=== PATIENT | male | born 1980 | race Caucasian/White ===

== ENCOUNTER 2017-03-24 06:52 | Emergency (ER) | payer SELFPAY ==
[2017-03-24 07:14] VITALS: TEMP 97.3
[2017-03-24] MEDS ORDERED: SODIUM CHLORIDE 0.9% 1000ML 1,000 ML IVS ONE (07:15)
--- NOTE | 2017-03-24 07:23 | ED.PDOC ---
History of Present Illness - General Chief Complaint: Problem Stated Complaint: right back pain Time Seen by Provider: 03/24/17 07:00 Source: patient, RN notes reviewed, Vital Signs reviewed Exam Limitations: no limitations - History of Present Illness Initial Comments: Patient comes in with c/o on R flank pain that started 4 days ago. Pain feels like a heaviness and is radiating to his L flank. He also has noticed decreased urine output, not getting up as much at night to pee. 3 days ago he took some baking soda to flush his kidneys but is concerned he may have hurt them. 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 No radiation of pain to abdomen or down legs. He does report a sore throat that started 3 days prior to the kidney pain. Timing/Duration: constant - X 3-4 days Quality: moderate, dull - heavy feeling Onset Location: right flank Radiation: left flank Activites at Onset: rest Prior abdominal problems: none Improving Factors: nothing Worsening Factors: nothing Associated Symptoms: denies symptoms Allergies/Adverse Reactions: Allergies NO KNOWN ALLERGY Allergy (Verified 03/24/17 07:14) Review of Systems - Review of Systems Constitutional: States: no symptoms reported, fever. Denies: chills EENTM: States: nose congestion, throat pain Respiratory: States: no symptoms reported. Denies: short of breath Cardiology: States: no symptoms reported Gastrointestinal/Abdominal: States: no symptoms reported, abdominal pain. Denies: nausea, vomiting Genitourinary: States: see HPI, pain. Denies: dysuria, frequency Musculoskeletal: States: see HPI, back pain Skin: States: no symptoms reported Neurological: States: no symptoms reported All other Systems: No Change from Baseline Past Medical History (General) - Patient Medical History Hx Asthma: No Hx of COPD: No Hx Cardiac Disorders: No Hx Congestive Heart Failure: No Hx Hypertension: No Surgical History: appendectomy - Vaccination History Hx Tetanus, Diphtheria Vaccination: No Hx Influenza Vaccination: No Hx Pneumococcal Vaccination: No - Social History Hx Tobacco Use: No Hx Alcohol Use: No Hx Substance Use: No Hx Substance Use Treatment: No Hx Depression: No Family Medical History - Family History Mother Family History: Unknown Physical Exam - Physical Exam General Appearance: Alert, Comfortable, No apparent distress, Well Developed, Well Groomed, Well Hydrated, Well Nourished Neck: supple, normal inspection Cardiovascular/Respiratory: regular rate, rhythm, no M/R/G, no JVD, normal breath sounds, no respiratory distress Gastrointestinal/Abdominal: normal bowel sounds, non tender, soft, no organomegaly, no pulsatile mass Back Exam: CVA tenderness (R) Extremity: normal range of motion, non-tender, normal inspection Neurologic: alert, normal mood/affect, oriented x 3 Skin Exam: normal color, warm/dry Comments: Vital Signs 03/24/17 07:04 Temperature 97.3 F L Pulse Rate [ 102 H pulse ox] Respiratory 20 Rate Blood Pressure 125/87 [Left Arm] O2 Sat by Pulse 97 Oximetry Progress - Progress Progress: 03/24/17 08:00 Discussed normal lab results with patient. Suspect is musculoskeletal in nature. Recommended alternating heat and ice along with Ibuprofen 800mg 3X/day as needed. - Results/Orders Results/Orders: Laboratory Tests 03/24/17 03/24/17 03/24/17 07:20 07:20 07:20 WBC 6.5 RBC 5.36 Hgb 16.5 Hct 48.9 MCV 91.3 MCH 30.9 MCHC 33.8 RDW 12.4 Plt Count 193 MPV 8.7 Absolute Neuts (auto) 4.30 Absolute Lymphs (auto) 1.50 Absolute Monos (auto) 0.60 Absolute Eos (auto) 0.10 Absolute Basos (auto) 0.00 Neutrophils % 65.6 Lymphocytes % 23.1 Monocytes % 8.6 Eosinophils % 2.2 Basophils % 0.5 Sodium 137 Potassium 3.5 L Chloride 101 Carbon Dioxide 29 Anion Gap 10.5 L BUN 11 Creatinine 1.01 BUN/Creatinine Ratio 10.9 Random Glucose 167 H Serum Osmolality 277.0 Calcium 9.5 Total Bilirubin 0.6 AST 16 ALT 13 Alkaline Phosphatase 51 Serum Total Protein 8.2 Albumin 4.8 Globulin 3.4 Albumin/Globulin Ratio 1.4 Urine Color Yellow Urine Appearance Clear Urine pH 6.5 Ur Specific Freeland >= 1.030 Urine Protein Negative Urine Glucose (UA) Negative Urine Ketones Negative Urine Blood Negative Urine Nitrite Negative Urine Bilirubin Negative Urine Urobilinogen 0.2 Ur Leukocyte Esterase Negative Urine RBC 0 Urine WBC 0 Ur Epithelial Cells 0 Urine Bacteria 0 Group A Strep DNA 03/24/17 07:26 WBC RBC Hgb Hct MCV MCH MCHC RDW Plt Count MPV Absolute Neuts (auto) Absolute Lymphs (auto) Absolute Monos (auto) Absolute Eos (auto) Absolute Basos (auto) Neutrophils % Lymphocytes % Monocytes % Eosinophils % Basophils % Sodium Potassium Chloride Carbon Dioxide Anion Gap BUN Creatinine BUN/Creatinine Ratio Random Glucose Serum Osmolality Calcium Total Bilirubin AST ALT Alkaline Phosphatase Serum Total Protein Albumin Globulin Albumin/Globulin Ratio Urine Color Urine Appearance Urine pH Ur Specific Freeland Urine Protein Urine Glucose (UA) Urine Ketones Urine Blood Urine Nitrite Urine Bilirubin Urine Urobilinogen Ur Leukocyte Esterase Urine RBC Urine WBC Ur Epithelial Cells Urine Bacteria Group A Strep DNA Negative Departure - Departure Clinical Impression: Low back pain Qualifiers: Chronicity: acute Back pain laterality: right Sciatica presence: without sciatica Qualified Code(s): M54.5 - Low back pain Time of Disposition: 08:01 Disposition: Discharge to Home or Self Care Condition: Good Departure Forms: ED Discharge - Pt. Copy, Patient Portal Self Enrollment Instructions: DI for Low Back Pain Diet: resume usual diet Activity: increase activity as tolerated Referrals: THOMAS DUKES [Family Provider] - 1-2 Weeks Additional Instructions: Discussed normal lab results with patient. Suspect is musculoskeletal in nature. Recommended alternating heat and ice along with Ibuprofen 800mg 3X/day as needed.
[2017-03-24 08:18] VITALS: BP 115/71; O2SAT 96
== END 2017-03-24 08:15 | disposition home or self-care (01) ==
LOC: ER 06:52
DX: M54.5 Low back pain (principal)
CPT/HCPCS: 36415; 80053; 81001; 85025; 87070; 87651; J7030

== ENCOUNTER 2017-09-16 04:50 | Observation (INO) | payer BC ==
[2017-09-16] MEDS ORDERED: SODIUM CHLORIDE 0.9% 1000ML 1,000 ML IVS ONE ×2 (05:22→06:40)
[2017-09-16] MEDS ORDERED: LOPERAMIDE CAP 2 MG CAP PO ONE (05:22)
[2017-09-16] MEDS ORDERED: ONDANSETRON ODT 8 MG TAB SL ONE (05:22)
--- NOTE | 2017-09-16 05:26 | ED.PDOC ---
History of Present Illness - General Source: patient Exam Limitations: no limitations - History of Present Illness Initial Comments: the patient is a 37-year-old male presenting to the emergency room with 3 days of nausea vomiting and diarrhea. The worst it has apparently been the diarrhea. No blood in the stool or vomitus. No real abdominal pain just some diffuse cramping. No fevers. His son has recently had similar symptoms. He is now having some body aches from dehydration. Severity: moderate Improving Factors: nothing Worsening Factors: nothing Associated Symptoms: loss of appetite, malaise, nausea/vomiting <Linden Hamilton - Last Filed: 09/16/17 06:40> <Sebas Carlton - Last Filed: 09/16/17 10:24> - General Chief Complaint: GI Problem Stated Complaint: N/V/D Time Seen by Provider: 09/16/17 05:06 - History of Present Illness Allergies/Adverse Reactions: Allergies NO KNOWN ALLERGY Allergy (Verified 03/24/17 07:14) Home Medications: Ambulatory Orders Citalopram Hydrobromide [CeleXA] 20 mg PO DAILY 09/16/17 Clonazepam [Klonopin] 1 mg PO BID 09/16/17 hydrOXYzine HCl [Atarax] 50 mg PO BID 09/16/17 Review of Systems - Review of Systems Constitutional: States: malaise EENTM: States: no symptoms reported Respiratory: States: no symptoms reported Cardiology: States: no symptoms reported Gastrointestinal/Abdominal: States: see HPI Genitourinary: States: no symptoms reported Musculoskeletal: States: muscle pain Skin: States: no symptoms reported Neurological: States: headache - mild Endocrine: States: no symptoms reported All other Systems: No Change from Baseline <Linden Hamilton - Last Filed: 09/16/17 06:40> Past Medical History (General) - Patient Medical History Hx Asthma: No Hx of COPD: No Hx Cardiac Disorders: No Hx Congestive Heart Failure: No Hx Hypertension: No Surgical History: appendectomy - Vaccination History Hx Tetanus, Diphtheria Vaccination: No Hx Influenza Vaccination: No Hx Pneumococcal Vaccination: No Immunizations Up to Date: No - Social History Hx Tobacco Use: No Hx Alcohol Use: No Hx Substance Use: No Hx Substance Use Treatment: No Hx Depression: No <Linden Hamilton - Last Filed: 09/16/17 06:40> Family Medical History - Family History Mother Family History: Unknown <Linden Hamilton - Last Filed: 09/16/17 06:40> Physical Exam - Physical Exam General Appearance: Alert, No apparent distress Eye Exam: bilateral normal Ears, Nose, Throat: hearing grossly normal, normal ENT inspection, normal pharynx Neck: full range of motion, supple Respiratory: lungs clear, normal breath sounds, no respiratory distress, no accessory muscle use Cardiovascular/Chest: normal peripheral pulses, regular rate, rhythm, no edema Peripheral Pulses: radial,right: 2+, radial,left: 2+, dorsalis pedis,right: 2+, dorsalis pedis,left: 2+ Gastrointestinal/Abdominal: non tender, soft, other - no rebound or peritoneal signs and no palpable mass Rectal Exam: deferred Back Exam: no CVA tenderness, no vertebral tenderness Extremity: normal range of motion, non-tender, normal inspection, no pedal edema , normal capillary refill Neurologic: calender tender II-XII nml as tested, alert, normal mood/affect, oriented x 3 Skin Exam: normal color Comments: Vital Signs - 24 hr 09/16/17 04:58 Temperature 98.1 F Pulse Rate [ 102 H Left] Respiratory 20 Rate Blood Pressure 134/88 [Right Arm] <Linden Hamilton - Last Filed: 09/16/17 06:40> Progress - Progress Progress: 09/16/17 06:42 the patient is a 37-year-old male presenting with 3 days of intermittent nausea and vomiting and more frequent diarrhea. No recent antibiotic use. No real abdominal pain. He denies blood in his stool or his vomitus. No fevers. His lab work does not look too concerning however there is a mild left shift on his white blood cell count. His abdominal x-ray is concerning for early partial small bowel obstruction versus inflammatory bowel disease. The patient has no previous diagnosis of his inflammatory bowel disease however he does report that his father did have multiple intestinal ulcers in the past. The patient also reports that he does frequently have abdominal bloating and cramping on a regular basis. CT scan with IV and oral contrast has been ordered for further evaluation. It is possible the patient may have more advanced bowel inflammation as well from dietary intolerances such as long-standing lactose intolerance or gluten sensitivity as well. No antibiotics have been given at this point. The patient is feeling a little better after some IV fluids and nausea medications. We will check a C. difficile on his next stool. The patient will be followed by the oncoming ER physician, Dr. Carlton. - Results/Orders Results/Orders: Laboratory Results - last 24 hr 09/16/17 09/16/17 05:30 05:30 WBC 9.9 RBC 5.39 Hgb 17.0 Hct 49.9 MCV 92.5 MCH 31.5 H MCHC 34.1 RDW 13.4 Plt Count 190 MPV 8.6 Absolute Neuts (auto) 8.90 H Absolute Lymphs (auto) 0.40 L Absolute Monos (auto) 0.50 Absolute Eos (auto) 0.10 Absolute Basos (auto) 0.00 Neutrophils % 90.3 H Lymphocytes % 4.0 L Monocytes % 4.9 Eosinophils % 0.7 L Basophils % 0.1 Sodium 137 Potassium 4.9 Chloride 102 Carbon Dioxide 28 Anion Gap 11.9 L BUN 20 H Creatinine 1.08 BUN/Creatinine Ratio 18.5 Random Glucose 189 H Serum Osmolality 281.5 Calcium 10.0 Magnesium 2.1 Total Bilirubin 0.9 AST 28 ALT 29 Alkaline Phosphatase 48 Serum Total Protein 8.3 H Albumin 4.8 Globulin 3.5 Albumin/Globulin Ratio 1.4 Amylase 50 Lipase 33 acute abdominal series shows bowel gas pattern concerning forearly partial small bowel obstruction versus inflammatory bowel disease. No free air. <Linden Hamilton - Last Filed: 09/16/17 06:40> - EKG/XRAY/CT XRAY: abdomen - suspect early SBO/IBD CT Ordered: Yes - abd/P-ileus no sbo,choleleithiasisis <Sebas Carlton R - Last Filed: 09/16/17 10:24> Departure <Linden Hamilton - Last Filed: 09/16/17 06:40> - Departure Time of Disposition: 10:24 <Sebas Carlton - Last Filed: 09/16/17 10:24> - Departure Clinical Impression: Acute diarrhea, Gastroenteritis, Dehydration, Enterocolitis Disposition: Admit Patient Condition: Good Departure Forms: ED Discharge - Pt. Copy, Patient Portal Self Enrollment Referrals: SAMAN QUARLES [Primary Care Provider] - 1-2 Weeks Home Medications: Ambulatory Orders Citalopram Hydrobromide [CeleXA] 20 mg PO DAILY 09/16/17 Clonazepam [Klonopin] 1 mg PO BID 09/16/17 hydrOXYzine HCl [Atarax] 50 mg PO BID 09/16/17 Decision To Admit - Decistion To Admit Decision to Admit Reason: Admit from ER Decision to Admit Date: 09/16/17 - D/W Oh David -ANP/Hospitalist Decision to Admit Time: 10:23 <Sebas Carlton - Last Filed: 09/16/17 10:24>
--- NOTE | 2017-09-16 06:19 | RAD ---
EXAM: TWO VIEW SINGLE and UPRIGHT ABDOMEN AND PA CHEST RADIOGRAPHS CLINICAL INDICATION: Nausea and vomiting for 3 days. COMPARISON: None. FINDINGS: Cardiac size and pulmonary vasculature are normal. Lungs are clear. No pleural effusions or pneumothorax. Numerous loops of nondistended small bowel colon with some has fluid levels on the upright examination. IMPRESSION: 1. Suspect early versus incomplete bowel obstruction versus inflammatory bowel disease. If clinical concern persists, post contrast abdomen and pelvic CT should be performed for further evaluation as clinically warranted. 2. Normal PA chest radiograph. Electronically signed by: Dash Edward MD 09/16/2017 6:18 AM CDT
--- NOTE | 2017-09-16 09:24 | CT ---
EXAM DESCRIPTION: CT ABDOMEN AND PELVIS WITH CONTRAST CLINICAL HISTORY: iv and oral contrast, nvd, susp abd xray COMPARISON: None Available. TECHNIQUE: CT of the abdomen and pelvis are performed during IV bolus administration of 100 mL of Isovue 300. Oral contrast media is administered as well. This exam was performed according to our departmental dose-optimization program, which includes automated exposure control, adjustment of the mA and/or kV according to patient size and/or use of iterative reconstruction technique. FINDINGS: The lung bases are clear without infiltrate or effusion. The liver is normal in appearance without cystic or solid abnormality. The gallbladder is well distended with numerous small fatty foci within the gallbladder lumen consistent with cholesterol gallstones. Acute inflammation or wall thickening or ductal dilation is not apparent. Moderate splenomegaly is present and the pancreas and adrenal glands appear normal. Both kidneys normally enhance cortically without stone or cyst or mass or obstruction. The stomach is distended with contrast and particulate material and likely several tablets layering in the dependent portion of the stomach with dilute contrast extending through small bowel loops several of which are modestly dilated in the right mid abdomen. Beyond this fluid-filled loops of small bowel as well as a fluid-filled colon suggests the possibility of an enterocolitis without bowel wall thickening or free abdominal air or fluid. With the proximal small bowel dilation a partial obstruction cannot be excluded but I am most suspicious this is related to an acute rather diffuse inflammatory process of the large and small bowel. The aorta and retroperitoneum and mesentery are unremarkable without significant adenopathy or inflammatory change. Fluid-filled terminal ileum and cecum is present without a distinct mass noted. The appendix is not specifically identified but secondary signs of mesenteric or cecal or terminal ileal localized inflammation is not apparent. Significant diverticulosis of the colon is not evident. Anterior abdominal wall and inguinal regions are unremarkable. The bladder distends normally and the prostate and seminal vesicles are normal. No free fluid within the cul-de-sac is noted. Mesenteric vascular structures are normal. The bony spine and pelvis and hips are unremarkable. IMPRESSION: 1. Abnormal stomach and small and large bowel with fluid distended small bowel and colon suggesting an enterocolitis with mild dilation of several loops of proximal small bowel most likely an ileus and less likely a partial obstruction. Oral contrast extends beyond these dilated loops into the normal caliber mid small bowel. 2. Large distended stomach filled with particulate material fluid and contrast as well as medication tablets suggesting an element of gastric atony or less likely gastric outlet obstruction. 3. Cholelithiasis with numerous small cholesterol stones within the gallbladder with normal bile ducts and gallbladder wall 4. No free abdominal fluid or localized acute inflammatory process such as appendicitis or diverticulitis. 5. Moderate splenomegaly with otherwise normal-appearing liver. Electronically signed by: Jeff Mullins MD 09/16/2017 9:22 AM CDT
[2017-09-16] MEDS ORDERED: LACTATED RINGERS 1,000 ML IVS PRN (10:21)
--- NOTE | 2017-09-16 10:42 | HP ---
SUPERVISING PHYSICIAN: Jeff Hamilton MD CHIEF COMPLAINT: Nausea, vomiting and diarrhea. HISTORY OF PRESENT ILLNESS: Mr. Talley is a 37-year-old, male patient who presented to the Emergency Department early this morning after having 3 days of nausea, vomiting and some diarrhea. He noted that around [place] he started having some blood in his stools although he was having formed stools at that time that then transitioned to some diarrhea over the last 24 to 48 hours. He has had some mild cramping like abdominal pains with bloating. He denied any fevers or chills. He also notes that his son has had similar symptoms over the last 6 days and he has had on and off diarrhea for the last 3 days. Initial workup in the Emergency Room consisted of an abdominal x-ray and per radiologic interpretation showed suspicious for early incomplete bowel obstruction versus inflammatory bowel disease. This was followed up with a CT of the abdomen and pelvis with oral and IV contrast and per radiologic interpretation there was note of abnormal stomach, small and large bowel distention and colon suggestive of enterocolitis with some mild dilation of several loops of small proximal most likely ileus, but cannot rule out partial obstruction. There is also note of cholelithiasis with numerous small cholesterol stones within the gallbladder, but normal bile ducts and gallbladder wall. There was no free abdominal fluid or localizing inflammatory response suggesting appendicitis or diverticulitis. Laboratory studies showed he had a normal white count of 9,900 with a left shift. Chemistries showed he had an elevated BUN, but normal liver functions and pancreatic enzymes. Given the findings on CT concerning for possible ileus, the patient is going to be placed in observation status for ongoing treatment with fluids, further evaluation and further consultation with Dr. Mora. The patient was placed in observation in stable condition. PAST MEDICAL HISTORY: 1. Anxiety. 2. Depression. PAST SURGICAL HISTORY: 1. Appendectomy. HOME MEDICATIONS: 1. Celexa 20 mg daily. 2. Atarax 50 mg b.i.d. 3. Klonopin 1 mg b.i.d. FAMILY HISTORY: Significant for diabetes mellitus, cardiovascular disease. 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 He is currently going through a divorce. He denies any alcohol or illicit drug use and has never smoked tobacco. REVIEW OF SYSTEMS: CONSTITUTIONAL: Some general malaise, but no fevers or chills. HEENT: Denies nasal congestion, sore throat, earaches. RESPIRATORY: Denies cough, shortness of breath. CARDIOVASCULAR: Denies chest pain, palpitations or syncopal episodes. GASTROINTESTINAL: As noted in history of present illness. Some diffuse abdominal cramping with nausea, vomiting and diarrhea. GENITOURINARY: Denies dysuria, hematuria or other urinary symptoms. NEUROLOGIC: Denies any headaches, ataxia, seizures or other neurologic deficits. PHYSICAL EXAMINATION: VITAL SIGNS: On initial presentation to the Emergency Department, he was slightly tachycardic with heart rate 102. Temperature 98.1. Blood pressure 134 /80. Respirations 20. Saturation 96% on room air. Admission weight 73.2 kg. GENERAL: On admission to the Medical/Surgical Floor, the patient appears to be comfortable in no acute distress. He is alert. HEENT: Tympanic membranes clear bilaterally. Oropharynx is pink, with dry mucous membranes. No lesions. NECK: Supple, nontender with full range of motion. No jugular venous distention noted. RESPIRATORY: Lungs clear to auscultation bilaterally without any rhonchi, wheezes, or rales. CARDIOVASCULAR: Regular rate and rhythm without any appreciable murmurs, gallops, or rubs. ABDOMEN: Soft, hypoactive bowel sounds with some mild diffuse tenderness throughout, but no rebound, peritoneal signs or guarding noted. EXTREMITIES: There is no cyanosis, clubbing or edema. NEUROLOGIC: The patient is alert and oriented times three. Cranial nerves II- XII are grossly intact. Facial features are symmetrical. Extraocular movements are within normal limits. There is no nystagmus noted. LABORATORY: White count 9,900, hemoglobin 17, hematocrit 49.9, platelet count 190,000. Differential does show a left shift. Chemistries with normal electrolytes with potassium 4.9, BUN 20, creatinine 1.08, glucose 189, calcium 10.0, magnesium 2.1. Liver functions within normal limits. Amylase and lipase within normal limits. TSH and hemoglobin A1c pending at time of admission. Urinalysis within normal limits. Stool occult blood pending. Urine drug screen toxicology was pending. MICROBIOLOGY: C. difficile toxin A and B were both negative for antigen and toxin A and B. Stool cultures pending. Giardia antigen stools pending. Leukocyte ferritin pending. O&P pending. RADIOLOGY: Initially in the Emergency Department, he had an abdominal x-ray and per radiologic interpretation was suspicious for early versus incomplete bowel obstruction versus inflammatory bowel disease. This was followed up with CT of the abdomen and pelvis with contrast, both oral and IV. Per radiologic interpretation, showed abnormal stomach, small and large bowel with fluid, distended small bowel suggestive enterocolitis with some mild dilation of several loops of proximal small bowel, most likely ileus and most likely a partial obstruction. There was also note of oral contrast that extended beyond the dilated loops into the normal caliber of the mid small bowel. There was also note of large, distended stomach filled with contrast media suggesting an element of gastric atonia or less likely gastric outlet obstruction. Also of note was cholelithiasis with numerous small cholesterol stones within the gallbladder with normal bile ducts and gallbladder wall. There was no note of any free abdominal fluid or localized acute inflammatory processes such as appendicitis or diverticulitis. There was note of moderate splenomegaly. Otherwise, normal appearing liver. ASSESSMENT: 1. Acute abdominal pain with concerns for ileus and questionable enterocolitis, uncertain etiology, with stool studies pending. 2. Cholelithiasis with normal bile ducts and no mention of gallbladder wall thickening on CT with contrast. 3. Moderate dehydration secondary to nausea, vomiting and diarrhea. 4. History of anxiety and depression. PLAN: The patient is going to be placed in observation status today for IV fluids for rehydration purposes and further evaluation. We will have a consultation with Dr. Mora. He will be NPO until further evaluation. We will provide him with antiemetics as needed for nausea. We will await further stool cultures and further stool workups and plan to repeat laboratory studies in the morning. We will anticipate his length of stay to be at least 1 to 2 days with anticipation of possibly discharging tomorrow to have close clinical followup with his primary care provider, Dr. Fontenot, depending on Dr. Mora's consultation findings. He will be on DVT prophylaxis per protocol. We will continue to monitor the patient closely and treat appropriately until discharge. #[id number] [facility]
[2017-09-16] MEDS ORDERED: SODIUM CHLORIDE 0.9% (FLUSH) 10 ML SYG IV PRN (12:27)
[2017-09-16] MEDS ORDERED: IV SET AND CAP CHANGE INJ INJ SCH (12:30)
[2017-09-16] MEDS: KCL 20MEQ/D5 1/2NS 1,000 ML IVS PRN ×2 (12:48→23:55)
--- NOTE | 2017-09-16 17:21 | CONS ---
DATE OF CONSULTATION: 09/16/17 REFERRING PHYSICIAN: Hospitalist Service, Jeff Hamilton M.D. and Oh David NP. 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 He did note that he had blood in his stools on Friday. He said that is abnormal for him to have any significant blood. He has had crampy abdominal pain and bloating but denied fever or chills. He states that he does routinely have bloating with some meals and flatulence, but denies significant pain. There is no history of hepatitis or jaundice. It is possibly significant that his son was sick with a like GI illness over the last few days. PAST MEDICAL HISTORY: 1. Anxiety and depression. PAST SURGICAL HISTORY: 1. Appendectomy. CURRENT MEDICATIONS: 1. Celexa. 2. Atarax. 3. Klonopin. FAMILY HISTORY: Positive for diabetes and cardiovascular disease. 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 He is but going through a divorce. He denies alcohol, drug or tobacco use. He has 2 children. REVIEW OF SYSTEMS: Unremarkable except as in the History of Present Illness. He denies upper respiratory symptoms, shortness of breath or chest pain. He denies problems voiding, blood in his urine, polyuria or dysuria. PHYSICAL EXAMINATION: VITAL SIGNS: Temperature currently is 99.9, pulse in the 90s. He is normotensive. GENERAL: The patient is awake, alert and cooperative. HEENT: Reveals the sclera to be nonicteric. Mucous membranes are moist. NECK: Without adenopathy. CHEST: He has equal breath sounds bilaterally. BACK: Without CVA tenderness. HEART: Regular rhythm. ABDOMEN: Soft, diffusely tender without mass, rebound or guarding. RECTAL: Examination is deferred. EXTREMITIES: Without clubbing, cyanosis or edema. LABORATORY: White count of 9.9 with hemoglobin 17, platelet count 190,000, 90% segmented neutrophils. Liver functions are within normal limits. Amylase and lipase are within normal limits. Potassium 4.9, creatinine 1.08. Urinalysis is unremarkable. Hemoglobin A1c is pending. Urine drug screen is negative except for Benzodiazepine. C-Diff is negative. Stool cultures and parasitic exams are pending. Stool leukocyte test was positive. RADIOLOGY: CT scan basically showed inflammatory process involving both the small bowel and the colon. Showed gallstones but no inflammatory changes around the gallbladder. There was no free fluid and no obvious inflammatory process. IMPRESSION: 1. Abdominal pain with nausea and vomiting with a recent history of a son with like disease. 2. Cholelithiasis with no signs of cholecystitis. 3. Dehydration which is resolving. 4. Anxiety and depression. PLAN: Will continue gentle hydration. Recheck lab in the morning. Consider a GI consultation tomorrow. [facility][id number] [facility]
[2017-09-16] MEDS ORDERED: KETOROLAC TROMETHAMINE INJ 30 MG/ML VIAL IV ONE (17:30)
[2017-09-16] MEDS ORDERED: LACTATED RINGERS 1,000 ML IVS ONE (17:40)
[2017-09-16] MEDS: PANTOPRAZOLE SODIUM IV 40 MG VIAL IV SCH (17:48)
[2017-09-16] MEDS: ONDANSETRON INJ 4 MG/2 ML VIAL IV PRN (17:48)
[2017-09-16] MEDS ORDERED: KCL 20MEQ/D5 1/2NS 1,000 ML IVS ONE (19:00)
[2017-09-17] MEDS: ONDANSETRON INJ 4 MG/2 ML VIAL IV PRN ×2 (02:00→09:13)
[2017-09-17] MEDS ORDERED: KETOROLAC TROMETHAMINE INJ 30 MG/ML VIAL IV ONE (02:03)
[2017-09-17] MEDS: KCL 20MEQ/D5 1/2NS 1,000 ML IVS PRN (06:32)
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
[2017-09-17] MEDS ORDERED: SODIUM CHLORIDE 0.45% 1000ML 1,000 ML IVS ONE (10:17)
[2017-09-17] MEDS ORDERED: MAGNESIUM HYDROXIDE 30 ML UD PO ONE (10:18)
--- NOTE | 2017-09-17 11:14 | PN ---
SUPERVISING PHYSICIAN: Jeff Hamilton MD DATE: 09/17/17 SUBJECTIVE: The patient is sitting up in his hospital bed. He complains of thirst as well as burning with diarrhea at the rectum. He does feel somewhat better, but has had occasional bouts of nausea without vomiting and required Zofran. OBJECTIVE: VITAL SIGNS: T-max 24 hours 100.7. Pulse 75. Blood pressure 94/ 54. Respiratory rate 16. O2 saturation 98% on room air. RESPIRATORY: Essentially clear to auscultation bilaterally. CARDIAC: Regular rate and rhythm. GASTROINTESTINAL: Abdomen is soft, nondistended, mildly tender diffusely. Bowel sounds are positive. NEUROLOGIC: Awake, alert and oriented times three. LABORATORY: WBCs 4.3, hemoglobin 14.9, hematocrit 43.7. Neutrophils 76.2%. Sodium 138, potassium 4, chloride 107, carbon dioxide 26, BUN 12, creatinine 1.22, glucose 165, hemoglobin A1c 6.5, calcium 8.1. Giardia and parasite stool studies are pending. O&P for stools is pending. Positive for stool leukocytes and Clostridium difficile is negative. Abdominal x-ray per radiologic interpretation shows a normal two view abdomen, but there is some contrast dye in there. All other labs and films have been reviewed via the EMR. ASSESSMENT: 1. Acute abdominal pain with concerns for ileus and most likely gastroenterocolitis. Stool studies are pending, but has a negative Clostridium difficile. 2. Cholelithiasis with normal bile ducts and no mention of gallbladder wall thickening on CT with contrast. 3. Moderate dehydration secondary to nausea, vomiting and diarrhea, continues but has improved. 4. History of anxiety and depression. PLAN: We will continue present supportive care. I have given him another liter of fluids due to his dehydration. Dr. Mora, general surgeon, and I spoke with Dr. Ghassan Gutierrez, buttermaker continuous churn, and he agreed with present plan of care. He agreed that he thought it was viral in etiology. He recommended there be close followup with his primary care physician, which is Dr. Fontenot in [place]. We will advance his diet to clear liquids. If he tolerates that, he will most likely be able to be discharged home tomorrow. We will watch his dehydration closely. Dr. Gutierrez recommended he could see a GI doctor as an outpatient. I have also given him a dose of Milk of Magnesia. I will hold on the labs for in the morning. Hopefully he will be discharged tomorrow if he tolerates the advancing of his diet. He does have an appointment with Dr. Fontenot on Friday, but that may have to be rescheduled. Dr. Hamilton is the collaborating physician and available for consultation. [facility][id number] [facility]
[2017-09-17] MEDS: PANTOPRAZOLE SODIUM IV 40 MG VIAL IV SCH (19:15)
[2017-09-17 23:26] VITALS: O2SAT 98
[2017-09-18] MEDS ORDERED: SODIUM CHLORIDE 0.9% (FLUSH) 10 ML SYG IV SCH (09:00)
[2017-09-18 10:06] VITALS: BP 101/69; TEMP 96.7
--- NOTE | 2017-09-18 15:50 | DS ---
SUPERVISING PHYSICIAN: Jeff Hamilton M.D. DISCHARGE DIAGNOSIS: 1. Acute abdominal pain with concerns for ileus and most likely gastroenterocolitis. Stool studies are pending but has a negative Clostridium Difficile. 2. Cholelithiasis with normal bile ducts and no mention of gallbladder wall thickening on CT with contrast. 3. Moderate dehydration tenderness nausea, vomiting and diarrhea that has improved. 4. History of anxiety and depression. HISTORY OF PRESENT ILLNESS: This is a 37 year-old male patient who presented to the Emergency Room on the day of admission after having 3 days of nausea, vomiting and diarrhea. On Friday, he started having some blood in his stools, although his stools were formed, and then he transitioned to some diarrhea prior to his admission. He had mild cramping with bloating. No fever or chills. His son also had some similar symptoms several days before his symptoms began. In the Emergency Room, his abdominal x-ray per radiology interpretation showed suspicious for early incomplete bowel obstruction versus inflammatory bowel disease. It was followed-up with a CT of the abdomen and pelvis with oral and IV contrast per radiology interpretation there was note of abnormal stomach, small and large bowel and colon distention suggestive of enterocolitis with some mild dilatation of several loops of the small proximal most likely ileus, but cannot rule out partial obstruction. There was also of note of some cholelithiasis with numerous small cholesterol stones within the gallbladder but normal bile ducts and gallbladder wall. There was no free abdominal fluid or localized inflammatory response suggesting appendicitis or diverticulitis. Laboratory studies in the Emergency Room showed a normal white count of 9,900 with a left shift. His chemistry showed an elevated BUN but normal liver functions and pancreatic enzymes. He was placed in Observation in the hospital and Dr. Mora was consulted. HOSPITAL COURSE: He was made NPO and given fluids. He continued to have mild symptoms of diarrhea but those improved. His WBCs on his second day were 4.3 with a hemoglobin 14.9 and 43.7, and his neutrophils were 76.2%. BUN improved to 12. Blood sugars were slightly elevated during his hospital stay but his hemoglobin A1c was 6.5, calcium 8.1, alkaline phosphatase 36. Urinalysis was basically within normal limits. Stool for occult blood was negative as was his Clostridium Difficile. Giardia parasite and O&P stool studies are pending. Preliminary stool culture shows a very scant growth of normal enteric tong. Also his fecal leukocytes were positive. I spoke with Dr. Gutierrez, operations analyst from [place] and he reviewed his CAT scan. He felt like his condition was suggestive of viral enterocolitis and to continue treatment with fluids and bowel rest as long as the patient improved, and he suggested followup with his primary care physician as well as a possible consultation with GI at some point in the next month. His diarrhea and nausea improved. His diet was advanced. He tolerated clear liquids, full liquids and a regular diet this morning. His dehydration has improved. He will be discharged home today. DISCHARGE PLAN: The patient will be discharged home today in stable condition. He is to resume a regular diet but recommend that he follow a bland diet as tolerated. He is increase his fluids and avoid dehydration and becoming overheated. He has a followup appointment with his primary care physician, Dr. Fontenot in [place] on 09/29 at 3:00 PM. I have given him additional Celexa and Clonazepam until he sees his primary care physician. He is to return to the hospital or followup with his primary care physician for any further problems or complications. DISCHARGE MEDICATIONS: 1. Clonazepam. 2. Atarax. 3. Citalopram. Dr. Hamilton is the collaborating physician available for consultation. #[id number] [facility]
== END 2017-09-18 12:05 | disposition home or self-care (01) ==
LOC: ER 04:50 → MS 10:41
PROVIDERS: ADMIT Nurse Practitioner Family; ATTEND Nurse Practitioner Acute Care
DX: E86.0 Dehydration (principal); K52.9 Noninfective gastroenteritis and colitis, unspecified; K80.20 Calculus of gallbladder without cholecystitis without obstruction; F41.9 Anxiety disorder, unspecified; F32.9 Major depressive disorder, single episode, unspecified; Z79.899 Other long term (current) drug therapy
CPT/HCPCS: 36415 ×2; 74019 ×2; 74177; 80053 ×2; 80307; 81001 ×2; 82150; 82270; 83036; 83630; 83690; 83735; 84443; 85025 ×2; 87045; 87046; 87177; 87209; 87324; 87329; 87449; 94760; J1885 ×2; J2405 ×3; J7030 ×2; J7120; J7799

== ENCOUNTER 2018-01-11 20:25 | Emergency (ER) | payer BC, OTHER ==
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
[2018-01-11] MEDS ORDERED: ORPHENADRINE CITRATE 30 MG/ML AMP IM ONE (21:03)
[2018-01-11] MEDS ORDERED: KETOROLAC TROMETHAMINE INJ 30 MG/ML VIAL IM ONE (21:03)
[2018-01-11] MEDS ORDERED: TETANUS,DIPHTHERIA,PERTUSSIS 1 EA SYG IM ONE (21:03)
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
[2018-01-11] MEDS ORDERED: NEOMYCIN-BACITRACIN-POLYMYXIN 0.9 GM UD TOP ONE (22:05)
[2018-01-11 22:20] VITALS: TEMP 98.1
[2018-01-11 22:21] VITALS: BP 134/84; O2SAT 96
== END 2018-01-11 22:21 | disposition home or self-care (01) ==
LOC: ER 20:25
DX: M25.511 Pain in right shoulder (principal); M54.2 Cervicalgia; Z23 Encounter for immunization; V58.5XXA Driver of pick-up truck or van injured in noncollision transport accident in traffic accident, initial encounter; Y92.410 Unspecified street and highway as the place of occurrence of the external cause
CPT/HCPCS: 71045; 72040; 73030; 90471; 90715; J1885; J2360

== ENCOUNTER 2018-08-02 04:26 | Emergency (ER) | payer SELFPAY ==
[2018-08-02] MEDS ORDERED: LACTATED RINGERS 1,000 ML IVS ONE (04:51)
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
[2018-08-02] MEDS ORDERED: MAGNESIUM SULFATE PREMIX 2GM 2 GM in PREMIX BAG 1 BAG IVPB ONE (05:24)
[2018-08-02] MEDS ORDERED: MAGNESIUM SULFATE PREMIX 2GM 50 ML IVPB ONE (05:36)
[2018-08-02] MEDS ORDERED: ACETAMINOPHEN 500 MG TAB PO ONE (05:38)
[2018-08-02] MEDS ORDERED: cefTRIAXone SODIUM 1 GM VIAL ONE ×2 (05:41→05:43)
[2018-08-02] MEDS ORDERED: cefTRIAXone SODIUM 1 GM in SODIUM CHL 0.9% 50ML MIN-BAG+ 50 ML IVPB ONE (05:41)
[2018-08-02] MEDS ORDERED: SODIUM CHL 0.9% 50ML MIN-BAG+ 50 ML IVPB ONE (05:41)
--- NOTE | 2018-08-02 05:48 | RAD ---
CLINICAL HISTORY: cough COMPARISON: None. TECHNIQUE: XR CHEST 1 VIEW 08/02/2018 4:50 AM DRY END TESTER FINDINGS: Cardiac silhouette is normal in size. Lungs are clear without consolidation, atelectasis, mass or edema. There is no pleural effusion. There is no pneumothorax. There are no acute osseous findings. IMPRESSION: Clear lungs. Electronically signed by: Rigoberto Castro MD 08/02/2018 5:44 AM [employer]Y END TESTER
[2018-08-02] MEDS ORDERED: SODIUM CHLORIDE 0.9% 500ML 500 ML IVS ONE (05:56)
[2018-08-02 06:39] VITALS: BP 102/64; TEMP 100.6; O2SAT 93
== END 2018-08-02 07:06 | disposition home or self-care (01) ==
LOC: ER 04:26
DX: J02.0 Streptococcal pharyngitis (principal); E86.0 Dehydration; R79.89 Other specified abnormal findings of blood chemistry; E83.42 Hypomagnesemia; N28.9 Disorder of kidney and ureter, unspecified; R73.03 Prediabetes; R00.0 Tachycardia, unspecified
CPT/HCPCS: 36415; 36600; 71045; 80048; 80076; 80307; 81001; 82550; 82553; 82803; 82805; 83605; 83880; 84484; 85025; 85379; 85610; 85730; 87502; 87880; 93005; J0696; J3475; J7040; J7050; J7120

== ENCOUNTER 2018-11-19 16:35 | Emergency (ER) | payer SELFPAY ==
--- NOTE | 2018-11-19 16:44 | ED.PDOC ---
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 AT WORK IN A VERY HOT ENVIRONMENT HE IS A NON SMOKER HE HAS NO MAJOR MEDICAL ILLNESS - History of Present Illness Timing/Duration: changing over time Severity: moderate Improving Factors: nothing Worsening Factors: nothing Associated Symptoms: denies symptoms Allergies/Adverse Reactions: Allergies NO KNOWN ALLERGY Allergy (Verified 03/24/17 07:14) Home Medications: Ambulatory Orders cloNAZepam [Klonopin] 1 mg PO BID #22 tab 09/18/17 Prozac 01/11/18 Amoxicillin [Amoxil] 1,000 mg PO BID 7 Days #28 cap 08/02/18 Azithromycin [Zithromax Z-Trey] 250 mg PO Q24HR #6 tab 11/19/18 Review of Systems - Review of Systems Constitutional: States: chills, fever EENTM: States: no symptoms reported Respiratory: States: no symptoms reported Cardiology: States: no symptoms reported Gastrointestinal/Abdominal: States: no symptoms reported Genitourinary: States: no symptoms reported Musculoskeletal: States: no symptoms reported Skin: States: no symptoms reported Neurological: States: no symptoms reported Endocrine: States: no symptoms reported Hematologic/Lymphatic: States: no symptoms reported Past Medical History (General) - Patient Medical History Hx Seizures: No Hx Stroke: No Hx Dementia: No Hx Asthma: No Hx of COPD: No Hx Cardiac Disorders: No Hx Congestive Heart Failure: No Hx Pacemaker: No Hx Hypertension: No Hx Thyroid Disease: No Hx Diabetes: No - 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 borderline diabetic but has not been dr care Hx Gastroesophageal Reflux: Yes Hx Renal Disease: No Hx Cancer: No Hx of HIV: No Hx Hepatitis C: No Hx MRSA: No - Vaccination History Hx Tetanus, Diphtheria Vaccination: Yes Hx Influenza Vaccination: No Hx Pneumococcal Vaccination: No - Social History Hx Tobacco Use: No Hx Chewing Tobacco Use: Yes Hx Alcohol Use: No Hx Substance Use: No Hx Substance Use Treatment: No Hx Depression: No Hx Physical Abuse: No Hx Emotional Abuse: No Hx Suspected Abuse: No Family Medical History - Family History Mother Family History: Unknown Physical Exam - Physical Exam General Appearance: Alert Eye Exam: bilateral normal Ears, Nose, Throat: hearing grossly normal, normal ENT inspection, normal pharynx Neck: non-tender, full range of motion, supple Respiratory: chest non-tender, lungs clear, normal breath sounds, no respiratory distress Cardiovascular/Chest: normal peripheral pulses, regular rate, rhythm, no edema, no gallop Back Exam: normal inspection, no CVA tenderness, no vertebral tenderness Extremity: normal range of motion, non-tender Neurologic: fondant cooker II-XII nml as tested, no motor/sensory deficits, alert, normal mood/affect, oriented x 3 Skin Exam: normal color Departure - Departure Clinical Impression: Dehydration, Chills with fever, Acute bronchitis, Hyperglycemia Time of Disposition: 19:07 Disposition: Discharge to Home or Self Care Condition: Good Diet: resume usual diet Referrals: Ayala Young DO [Primary Care Provider] - 1-2 Weeks Prescriptions: Azithromycin [Zithromax Z-Trey] 250 mg PO Q24HR #6 tab Home Medications: Ambulatory Orders cloNAZepam [Klonopin] 1 mg PO BID #22 tab 09/18/17 Prozac 01/11/18 Amoxicillin [Amoxil] 1,000 mg PO BID 7 Days #28 cap 08/02/18 Azithromycin [Zithromax Z-Trey] 250 mg PO Q24HR #6 tab 11/19/18
[2018-11-19] MEDS ORDERED: ACETAMINOPHEN 500 MG TAB PO ONE (16:47)
[2018-11-19] MEDS ORDERED: SODIUM CHLORIDE 0.9% 1000ML 1,000 ML IVS ONE (16:47)
--- NOTE | 2018-11-19 17:04 | RAD ---
EXAM DESCRIPTION: Chest,1 View CLINICAL HISTORY: Conus of breath, evaluate for pneumonia COMPARISON: Chest radiograph dated August 02, 2018 TECHNIQUE: Single upright portable frontal view of the chest FINDINGS: Cardiac silhouette shows normal heart size. Pulmonary vascularity is within normal limits. Lungs show no confluent infiltrates. Costophrenic angles are sharp. No pneumothorax. Visualized osseous structures show no destructive lesions. IMPRESSION: No acute cardiopulmonary process. Electronically signed by: Wilberto Radford MD 11/19/2018 5:02 PM CDT
[2018-11-19 18:35] VITALS: TEMP 100.2; O2SAT 94
[2018-11-19 19:19] VITALS: BP 105/65
== END 2018-11-19 19:18 | disposition home or self-care (01) ==
LOC: ER 16:35
DX: J20.9 Acute bronchitis, unspecified (principal); E86.0 Dehydration; R73.03 Prediabetes; K21.9 Gastro-esophageal reflux disease without esophagitis; Z87.891 Personal history of nicotine dependence; Z79.899 Other long term (current) drug therapy
CPT/HCPCS: 71045; 80053; 81001; 85025; J7030